=== PATIENT | female | born 1945 | race Caucasian/White ===

== ENCOUNTER → 2016-12-04 12:57 | Emergency (ER) | payer MEDICARE ==
[2016-12-04 13:02] VITALS: BP 161/97
--- NOTE | 2016-12-04 13:43 | RAD ---
INDICATION: Intracranial injury. Fall off a horse COMPARISON: None TECHNIQUE: Noncontrast axial source images were acquired from the skull base to the vertex. FINDINGS: Ventricles/sulci: The ventricles and cisterns are normal in size and configuration for age. Brain parenchyma: There is no focal parenchymal finding, evidence of intracranial mass, or intracranial mass effect. Intracranial hemorrhage:None. Extra-axial spaces: There are no abnormal extra axial fluid collections or evidence of extra-axial mass. Calvarium: There is no calvarial fracture or other calvarial abnormality. Scalp: There is no evidence of scalp or extracalvarial soft tissue abnormality. Paranasal sinuses/mastoid: The paranasal sinuses and mastoid air cells are clear. Other: None. IMPRESSION: NEGATIVE EXAMINATION
--- NOTE | 2016-12-04 14:42 | ED ---
Head Injury - HPI Summary HPI Summary: Patient presents to ED after falling off a horse this morning. She states the horse tripped and started to fall down, upon the horse getting up, the patient decided to get off, but landed on her left side and hitting her head. She got back up on the horse for approximately 5-7 minutes and her sports athletic trainer stated she continue to ask the same questions such as "what happened" and realized she was suffering from memory loss around the accident. Denies memory loss or confusion prior to the accident. She notes to memory loss only during that time , and after the accident, states she has had no confusion, LEIVA, visual disturbances. She denies any other symptoms. She is feeling well on arrival to the ED and denies any pain in the left hip or side where she had landed during the fall. Denies blood thinners. Take BP medication and statin for HCL. - History Of Current Complaint Chief Complaint: EDHeadInjury Stated Complaint: FALL OFF HORSE/HEAD INJURY Time Seen by Provider: 12/04/16 13:10 Hx Obtained From: Patient Mechanism Of Injury: Blunt Trauma Onset/Duration: Started Minutes Ago Onset of Pain: Minutes Severity Currently: Mild Pain Intensity: 0 Pain Scale Used: 0-10 Numeric Location of Head Injury: Occipital Associated Signs And Symptoms: Memory Loss - Allergies/Home Medications Allergies/Adverse Reactions: Allergies Allergy/AdvReac Type Severity Reaction Status Date / Time Bee Venom Allergy Anaphylatic Verified 12/04/16 13:03 Shock Wasp Venom Protein Allergy Anaphylatic Verified 12/04/16 13:03 Shock PMH/Surg Hx/FS Hx/Imm Hx Previously Healthy: Yes Endocrine/Hematology History: Denies: Hx Diabetes, Hx Thyroid Disease Cardiovascular History: Reports: Hx Hypertension - on meds Respiratory History: Denies: Hx Asthma, Hx Chronic Obstructive Pulmonary Disease (COPD) GI History: Denies: Hx Ulcer Musculoskeletal History: Denies: Hx Osteoporosis - Cancer History Hx Chemotherapy: No Hx Radiation Therapy: No - Surgical History Surgery Procedure, Year, and Place: peridontal surgery - Immunization History Hx Pertussis Vaccination: No Immunizations Up to Date: Unable to Obtain/Confirm Infectious Disease History: No Infectious Disease History: Reports: Traveled Outside the [place] in Last 30 Days - [place] Denies: Hx Hepatitis, Hx Human Immunodeficiency Virus (HIV), History Other Infectious Disease - Social History Occupation: Unemployed Lives: With Family Alcohol Use: Rare Hx Substance Use: No Substance Use Type: Reports: None Hx Tobacco Use: No Smoking Status (MU): Never Smoked Tobacco Type: Cigarettes Review of Systems Constitutional: Negative Eyes: Negative Cardiovascular: Negative Respiratory: Negative Positive: no symptoms reported, see HPI Musculoskeletal: Negative Neurological: Other - memory loss - 7 minutes Psychological: Normal All Other Systems Reviewed And Are Negative: Yes Physical Exam Triage Information Reviewed: Yes Vital Signs On Initial Exam: Initial Vitals Temp Pulse Resp BP Pulse Ox 99.3 F 95 18 161/97 96 12/04/16 13:00 12/04/16 13:00 12/04/16 13:00 12/04/16 13:00 12/04/16 13:00 Vital Signs Reviewed: Yes Appearance: Positive: Well-Appearing, Well-Nourished Skin: Positive: Warm, Skin Color Reflects Adequate Perfusion Head/Face: Positive: Normal Head/Face Inspection Eyes: Positive: EOMI, ROCAEL, Conjunctiva Clear Neck: Positive: Supple, No Lymphadenopathy Respiratory/Lung Sounds: Positive: Clear to Auscultation, Breath Sounds Present Cardiovascular: Positive: Normal, RRR, Pulses are Symmetrical in both Upper and Lower Extremities Musculoskeletal: Positive: Normal, Strength/ROM Intact Neurological: Positive: Sensory/Motor Intact, Alert, Oriented to Person Place, Time, CN Intact II-III, Reflexes Intact, Normal Gait, Speech Normal, Other - no pronator drift Psychiatric: Positive: Normal AVPU Assessment: Alert Diagnostics - Vital Signs Vital Signs Temp Pulse Resp BP Pulse Ox 12/04/16 13:00 99.3 F 95 18 161/97 96 - Laboratory Lab Statement: Any lab studies that have been ordered have been reviewed, and results considered in the medical decision making process. Head Injury Course/Dx Course Of Treatment: Complete neuro exam completed and WNL. Normal head/face inspection no cephalohematoma. Reflexes intact. EOMI, ROCAEL. No obvious confusion or memory loss per patient and family. MMSE OK. GCS 15. Patient oriented to person, place and date. No obvious deformity or hematoma. Patient denies LOC. Visual acuity intact. ROM, strength, reflexes in upper and lower extremity intact, sensation intact. GCS score >15 at 1h post injury. No suspected open or depressed skull fx, no sign of basal skull fx, no hemotympanum , raccoon eyes, Battles sign, CSF flora-/rhinorrhea, no emesis after injury. Finger to nose, heel to toe OK. Speech normal, facial symmetry, normal gait, CN II-III intact. Patient denies LOC. ROM, strength, reflexes in upper and lower extremity intact, sensation intact. Patient discharged with return precautions and post-concussive symptoms explained to patient. Patient agrees to follow up and return if needed. Discussed with patient, we are not dx her with a concussion at this time, but brain rest over the next few days may decrease any symptoms of LEIVA, confusion she may have. Return precautions given. No medication given. - Diagnoses Differential Diagnosis/HQI/PQRI: Concussion With LOC, Concussion Without LOC, Contusion Provider Diagnoses: Head injury Discharge - Discharge Plan Condition: Stable Disposition: HOME Patient Education Materials: Head Injury (ED) Referrals: Gracia Woodward MD [Primary Care Provider] - Additional Instructions: Follow up with your PCP If you develop any LEIVA, confusion, fatigue or nausea/vomiting - you may return to the ED Attempt to brain rest for several days: This will include: Trying to avoid reading, looking at bright lights including computer, phone screen or TV in a dark room Sleep as much as possible
== END | disposition home or self-care (01) ==
LOC: ED 12:57
DX: S09.90XA Unspecified injury of head, initial encounter (principal); V80.010A Animal-rider injured by fall from or being thrown from horse in noncollision accident, initial encounter; Y93.52 Activity, horseback riding; Y92.9 Unspecified place or not applicable; Y99.9 Unspecified external cause status
CPT/HCPCS: 70450; 99282